=== PATIENT | male | born 1950 | race Asian ===

== ENCOUNTER → 2021-06-13 08:10 | Outpatient (REF) | payer OTHER, SELFPAY ==
--- NOTE | ~2021-06-13 | XR_ITS ---
EXAMINATION: XR CHEST CLINICAL INFORMATION: Smoking history COMPARISON: None TECHNIQUE: 2 views of the chest were obtained. FINDINGS: The cardiac and mediastinal contours are normal. The lungs are well inflated. The lungs are clear. There is no pleural effusion or pneumothorax. Bony structures are unremarkable. XR/XR chest 2V IMPRESSION: Hyperinflation. No evidence for acute disease in the chest.
--- NOTE | 2021-06-13 08:20 | CA_ITS ---
Transthoracic Echocardiogram Patient (Last, First, Middle): Jeronimo Jaquez S Gender: Male Date of : 1950 Age: 71 Procedure Date: 06/13/2021 Procedure Type: Transthoracic Echocardiogram Location: OP Height: 182.88 cm Weight: 74.84 kg BSA: 1.96 m2 Heart Rate: bpm BP: 108 / 72 mmHg Appeals Reviewer Veteran: DSG Referring MD: Raúl Gilliam MD Symptoms: R94.31 - Abnormal electrocardiogram [ECG] [EKG] Study Quality: Fair ECG Rhythm: Sinus Conclusions: - The left ventricular systolic function is normal. The calculated ejection fraction is 63% by biplane method. - Mildly increased right ventricular cavity size. - No obvious valvular pathology seen on this study. - There is mild dilatation of the ascending aorta measuring 4.00 cm. Findings Left Ventricle Normal left ventricular cavity size. There is normal left ventricular wall thickness. The left ventricular systolic function is normal. The calculated ejection fraction is 63% by biplane method. There is no evidence of regional wall motion abnormalities. Diastolic function is normal for age. LV peak global longitudinal strain -15.7% (mildly reduced). Right Ventricle Mildly increased right ventricular cavity size. There is normal right ventricular systolic function. Atria Both atria are normal in size. Aortic Valve There is a normal trileaflet aortic valve. There is mild calcification of the aortic valve. There is no aortic valve stenosis. There is no aortic valve regurgitation. Mitral Valve The mitral valve appears normal. There is no mitral valve regurgitation. There is no mitral valve stenosis. Pulmonic Valve The pulmonic valve is likely normal. Tricuspid Valve Normal tricuspid valve structure. There is trace tricuspid valve regurgitation. The pulmonary artery systolic pressure is normal. Great Vessels There is mild dilatation of the ascending aorta measuring 4.00 cm. Venous The inferior vena cava is normal in size and collapses greater than 50% with inspiration. Pericardium/Pleural There is no evidence of pericardial effusion. Prior Study Comparison No prior study available for comparison. Recommendations, Care & Conclusions No obvious valvular pathology seen on this study. Measurements 2D Linear Measurements IVSd: 0.90 0.6-0.9/0.6-1.0 cm LVIDd: 4.60 3.9-5.3/4.2-5.9 cm LVIDd Index: 2.35 2.4-3.2/2.2-3.1 cm/m2 LVIDs: 3.29 2.0-3.6 cm LVPWd: 1.04 0.7-1.1 cm LA Diam: 2.50 2.7-3.8/3.0-4.0 cm LAIDs Index: 1.28 1.5-2.3 cm/m2 LV Mass: 190.22 67-162/88-224 g LV Mass Index: 97.05 43-95/49-115 g/m2 LVOT Diam: 2.60 3.0+(-)1.3 cm 2D Systolic Function EF 4C: 63.30 >55% EF 2C: 61.10 >55% EF BiP: 62.60 >55% Mitral Valve MV Pk E: 0.58 MV PK A: 0.55 MV Decel Time: 161.00 E/A: 1.10 E'Lateral: 9.46 E'Medial: 7.62 E/E' Med: 7.70 E/E' Lat: 6.20 PHT: 47.00 MVA PHT: 4.68 Decel [place]: 3.62 Aortic Valve AoV Pk Tobi: 1.32 AoV Pk Grad: 7.00 LVOT LVOT Pk Tobi: 0.98 LVOT Mn Tobi: 0.63 LVOT VTI: 0.23 LVOT Pk Grad: 4.00 LVOT Mn Grad: 2.00 LVOT Diam: 2.60 LVOT Area: 5.31 Diastolic Function MV Pk E: 0.58 MV Pk A: 0.55 E/A: 1.10 E'Medial: 7.62 E/E' Med: 7.70 E' Laterial: 9.46 E/E' Lat: 6.20 Tricuspid Valve TR Pk Tobi: 2.54 TR Pk Grad: 26.00 RA Press: 3.00 RVSP: 29.00 Great Vessels Aorta Sinus of Valsalva: 4.00 2.0-3.5 cm Ao Asc: 4.00 2.1-3.4 cm Updated in Other Vendor System with Status of Final Nato Sharp MD electronically signed on 06/15/2021 12:57:37 PM with status of Final
== END ==
LOC: HO.CARD 08:10
PROVIDERS: PCP Family Medicine; Visit Provider Family Medicine
DX: R94.31 Abnormal electrocardiogram [ECG] [EKG] (principal); F17.200 Nicotine dependence, unspecified, uncomplicated
CPT/HCPCS: 71046; 93306; 93356

== ENCOUNTER 2022-10-17 08:47 | Outpatient (AMB) | payer OTHER, SELFPAY ==
[2022-10-17 08:49] VITALS: BP 110/70; PULSE 73; O2SAT 98; BMI 21.2
--- NOTE | 2022-10-17 08:49 | A.OFFPC_ITS ---
Vital Signs 10/17/22 08:49 Height 6 ft Weight 156 lb BMI 21.2 BP 110/70 Blood Pressure Location Rt brachial Position Sitting Pulse 73 Pulse Source Pulse Oximeter Pulse Oximetry (%) 98 Intake Visit Reasons: med review Intake Note: pt is here for med review, also concerns with wound/wound care Production Tester Required: No Accompanied by: Self / Same As Patient Allergies No Known Allergies Allergy (Verified 10/17/22 08:54) Medication List - Last Reconciled 10/17/22 by Raúl Gilliam MD albuterol sulfate 90 mcg/actuation (Ventolin HFA) 2 puffs inhalation Q4-6H PRN Flovent HFA 110 mcg/actuation (fluticasone propionate) 2 puffs inhalation BID 30 days NS Tobacco use date assessed: 10/17/22 Fall risk assessment: No Falls in past year Last assessed Fall Risk: 10/17/22 Dental Screening Dental Screen Date: 10/17/22 Did you have a dental visit in the last 12 months?: Yes Did you have a dental problem in the last 6 months where you did not have access to dental care?: No Was dental information given to patient?: Patient has dentist HPI med review HPI Details 72 y/o male presents to f/u med review. Pt reports ongoing concerns with his buttock wound. Pt has had this concern for several months and has not healed yet. He denies any pain today but notes that it does drain. He reports drainage is mostly clear with sometimes pus. Pt reports his breathing is okay but does feel worse than usual. He now smokes 1/2 ppd. He has trialed the nicotine gum which he notes has helped. He continues to take his Flovent and his Ventolin. Pt reports weight loss, unintentional. BMI today 21.2 HPI Comments History of Present Illness Details Documentation assistance for Raúl Gilliam MD, was provided by Leander Gilbert, Insurance Territory Manager on 10/17/2022 9:18 AM EST. Hernandez, Dr. Gilliam, have read, observed, and verified documentation. [facility] Surgical History History of inguinal hernia repair Social History Housing: House Patient Tobacco Use Status: Current everyday Tobacco user Tobacco use type: Cigarette Cigarettes Per Day: 10 e-Cigarette/Vaping Use: Never Used Second Hand Smoke Exposure: No Current occupational status: retired Current occupational exposures/hazards: No Cognitive needs: No Hearing needs: No Vision needs: No Questionnaire Thrive Questionnaire Date Thrive assessed: 02/26/21 MARIO-7 AMB Questionnaire MARIO-7 Date MARIO - 7 assessed: 02/26/21 Source: Developed by Drs. Andrew Lu, Livier Sifuentes, Kamaljit Pulido and colleagues, with an educational yanelis from [employer]. Review of Systems Const Denies chills, Denies fatigue, Denies fever(s), Denies headache(s) and Denies weakness ENT Denies dizziness and Denies headache(s) Card Denies chest pain, Denies lightheadedness, Denies dyspnea and Denies other (Palpitations) Resp Denies cough, Denies dyspnea, Denies wheezing and Denies other ( shortness of breath) Musc Denies numbness and Denies tingling Neuro Denies dizziness, Denies headache(s), Denies numbness, Denies tingling, Denies paresthesias and Denies weakness Psych Denies anxiety and Denies depression Endo Denies fatigue Aller/Immun Denies wheezing Physical exam (Primary Care) Vital Signs: Last Vital Signs Pulse 73 10/17/22 08:49 BP 110/70 10/17/22 08:49 Pulse Ox 98 10/17/22 08:49 BMI result Body Mass Index 21.2 Tobacco/Smoking Status: Tobacco use Status Tobacco use date assessed 10/17/22 10/17/22 08:56 Patient Tobacco Use Status Current everyday Tobacco 10/17/22 08:56 Tobacco use type Cigarette 10/17/22 08:56 e-Cigarette/Vaping Use Never Used 10/17/22 08:56 Thrive Assessment: Date of Thrive Assessment Date Thrive assessed 02/26/21 10/17/22 08:56 Const General: no acute distress and well developed Nutritional Appearance: well nourished Orientation/consciousness: patient oriented x3 HENMT Head: Yes normocephalic and Yes atraumatic Eyes General: appearance normal, both eyes and all related structures Pupils: Equal, round and reactive pupils present EOM: EOMs intact bilaterally Resp Other: Clear but distant breath sounds Effort & Inspection: normal respiratory effort Auscultation: clear to auscultation bilaterally Cardio Rate: regular rate Rhythm: regular rhythm Heart sounds: S1 normal heart sound present, S2 normal heart sound present, no gallops, no murmurs and no rubs Neuro General: patient oriented x3 and gait normal Cranial nerves: Yes Equal, round and reactive pupils present Psych Affect: normal affect Assessment and Plan Assessment & Plan (1) COPD (chronic obstructive pulmonary disease): Code(s): J44.9 - Chronic obstructive pulmonary disease, unspecified Plan: Currently stable. Lungs sound clear though distant. Continue inhaled medications Advised weaning and smoking cessation (2) Smoker: Code(s): F17.200 - Nicotine dependence, unspecified, uncomplicated Plan: As above, advised weaning and smoking cessation He uses gum to help wean down though he has not been using this lately. Has this available. Briefly discussed Chantix (3) Abscess of skin: Code(s): L02.91 - Cutaneous abscess, unspecified Plan: Ongoing chronic wound/ulcer at buttocks Referred to wound care (4) Diarrhea: Code(s): R19.7 - Diarrhea, unspecified Plan: Dental abscess and he was given penicillin a month ago. Since then has had intermittent watery diarrhea Likely antibiotic associated diarrhea but there is some possibility of C diff so checking labs (5) Dental abscess: Code(s): K04.7 - Periapical abscess without sinus Plan: Recently prescribed penicillin and advised he see his dentist Has seen dentist and has follow-up appointments for definitive care. (6) Weight loss: Code(s): R63.4 - Abnormal weight loss Plan: Mild unintentional weight loss. Patient's BMI is still within normal limits. Common and patients with COPD. Will continue to monitor Given he is a smoker, if he continues to have weight loss, will check chest x-ray and workup further Plan Due for CPE Orders: Orders Comprehensive [place]. Panel Fast Today Z00.00 - Encounter for general adult medical examination without abnormal findings Lipid Panel Today Z00.00 - Encounter for general adult medical examination without abnormal findings Prostate Specific Antigen Scr Today Z12.5 - Encounter for screening for malignant neoplasm of prostate TSH reflex Free T4 Today Z00.00 - Encounter for general adult medical examination without abnormal findings Microalbumin, Random (w Creat) Today I10 - Essential (primary) hypertension Complete Blood Count Auto Diff Today Z00.00 - Encounter for general adult medical examination without abnormal findings UA and rflx microscopic Today Z00.00 - Encounter for general adult medical examination without abnormal findings CDiff Gene PCR Today R19.7 - Diarrhea, unspecified GI Panel Today R19.7 - Diarrhea, unspecified Medications: Changed From albuterol sulfate 90 mcg/actuation (Ventolin HFA) 2 puffs inhalation Q4-6H PRN 8.5 grams 0RF shortness of breath or wheezing To albuterol sulfate 90 mcg/actuation (Ventolin HFA) 2 puffs inhalation Q4-6H 30 days PRN 8.5 grams 6RF shortness of breath or wheezing Coding Level of Care Code Est Pt Level 4 (93648) Diagnoses COPD (chronic obstructive pulmonary disease) J44.9 Smoker F17.200 Abscess of skin L02.91 Diarrhea R19.7 Dental abscess K04.7 Weight loss R63.4
== END 2022-10-17 09:28 | disposition home or self-care (01) ==
PROVIDERS: PCP Family Medicine; Visit Provider Family Medicine
DX: J44.9 Chronic obstructive pulmonary disease, unspecified (principal); F17.200 Nicotine dependence, unspecified, uncomplicated; L02.91 Cutaneous abscess, unspecified; R19.7 Diarrhea, unspecified; K04.7 Periapical abscess without sinus; R63.4 Abnormal weight loss
CPT/HCPCS: 99214

== ENCOUNTER 2022-11-28 12:42 | Outpatient (RCR) | payer OTHER, SELFPAY | END 2022-12-15 17:00 | disposition home or self-care (01) | LOC: HO.WCC 12:42 | PROVIDERS: PCP Family Medicine; Visit Provider Physician Assistant | DX: L02.31 Cutaneous abscess of buttock (principal); F17.210 Nicotine dependence, cigarettes, uncomplicated | CPT/HCPCS: 99213 ==

== ENCOUNTER 2022-12-15 13:18 | Outpatient (AMB) | payer OTHER, SELFPAY ==
[2022-12-15 13:43] VITALS: BP 137/71; PULSE 84; BMI 20.6
--- NOTE | 2022-12-15 13:43 | MHC.OFFVIS ---
Intake Vital Signs 12/15/22 13:43 Height 6 ft Weight 152 lb BMI 20.6 BP 137/71 Blood Pressure Location Rt brachial Position Sitting Pulse 84 Intake Visit Reasons: ? Abscess of left buttock Intake Note: Patient referred for abscess on lt buttock. Present since August 1999. Not healing completely. C/o oozing yellowish pus. Business Intelligence Director Required: No Accompanied by: Self / Same As Patient Allergies No Known Allergies Allergy (Verified 12/15/22 13:45) HPI HPI Comments History of Present Illness Details Patient presents for evaluation left buttock. He has had a several year history of chronic infections and inflammation of this area. He was seen [facility] referred him here. Chart was reviewed patient [facility] Surgical History History of inguinal hernia repair Social History (Updated 12/15/22 @ 13:47 by GABRIELE Cox) Housing: House Alcohol intake: never Patient Tobacco Use Status: Current everyday Tobacco user Tobacco use type: Cigarette Cigarettes Per Day: 10 e-Cigarette/Vaping Use: Never Used Second Hand Smoke Exposure: No Current occupational status: retired Current occupational exposures/hazards: No Cognitive needs: No Hearing needs: No Vision needs: No Physical Exam Vital Signs: Last Vital Signs Pulse 84 12/15/22 13:43 BP 137/71 12/15/22 13:43 BMI result Body Mass Index 20.6 Skin Other: Patient has profound and extensive chronic hidradenitis suppurativa changes involving nearly his entire left buttock. No obvious evidence of fluctuance or abscess but marked induration and thickening of the centrally and tired area involved. Assessment & Plan Assessment & Plan (1) Hidradenitis suppurativa: Code(s): L73.2 - Hidradenitis suppurativa Plan This was reviewed and also evaluated/examined by Dr. Christianson who agrees that thishidradinitis suppurative would best be served by attempted treatment by dermatology with biologics. Dr. Orozco has handled these cases before and a referral will be made for this appointment. Patient otherwise follow-up p.r.n. or with [facility]ound [facility] whom he had visited last week. Coding Level of Care Code New Pt Level 4 (28906) Diagnoses Hidradenitis suppurativa L73.2
== END 2022-12-15 13:57 | disposition home or self-care (01) ==
PROVIDERS: PCP Family Medicine; Referring Provider Physician Assistant; Visit Provider Surgery
DX: L73.2 Hidradenitis suppurativa (principal)
CPT/HCPCS: 99204

== ENCOUNTER → 2022-12-15 13:18 | Outpatient (BNVA) | payer OTHER, SELFPAY | PROVIDERS: PCP Family Medicine; Referring Provider Physician Assistant; Visit Provider Surgery ==

== ENCOUNTER 2022-12-22 10:51 | Outpatient (AMB) | payer OTHER, SELFPAY ==
--- NOTE | 2022-12-22 11:03 | MHC.PC.OV ---
Vital Signs 12/22/22 11:04 Height 6 ft Weight 153 lb 6 oz BMI 20.8 BP 124/72 Blood Pressure Location Rt brachial Position Sitting Pulse 77 Pulse Source Pulse Oximeter Pulse Oximetry (%) 95 Intake Visit Reasons: CPE with f/u labs and health maint Intake Note: Patient is here for his physical today. Allergies No Known Allergies Allergy (Verified 12/22/22 11:07) Tobacco use date assessed: 12/22/22 Fall risk assessment: No Falls in past year Last assessed Fall Risk: 12/22/22 HPI CPE with f/u labs and health maint HPI Details Patient?presents?for?complete?physical?exam. No?recent?labs?to?review. He?notes?that?he?has?been?using?his?albuterol?inhaler?more. Breathing?fairly?easily?today?but?says?that?he?was?coughing?up?mucus?this?morning?which?he?does?every?morning?and?he?is?still?smoking?about?10?cigarettes?per?day. Had?tried?an?Advair?inhaler?in?the?past?which?helped?control?his?symptoms. Seen?by?surgery?and?they?referred?him?to?dermatology?for?hidradenitis?suppurativa Feels?fairly?well?today.??No?other?complaints. [facility] Surgical History History of inguinal hernia repair Social History (Updated 12/15/22 @ 13:47 by GABRIELE Cox) Housing: House Alcohol intake: never Patient Tobacco Use Status: Current everyday Tobacco user Tobacco use type: Cigarette Cigarettes Per Day: 10 e-Cigarette/Vaping Use: Never Used Second Hand Smoke Exposure: No Current occupational status: retired Current occupational exposures/hazards: No Cognitive needs: No Hearing needs: No Vision needs: No Questionnaire Thrive Questionnaire Date Thrive assessed: 02/26/21 MARIO-7 AMB Questionnaire MARIO-7 Date MARIO - 7 assessed: 02/26/21 Source: Developed by Drs. Andrew Lu, Liiver Sifuentes, Kamaljit Pulido and colleagues, with an educational yanelis from [employer]. Review of Systems Const Denies chills, Denies fatigue, Denies fever(s), Denies headache(s) and Denies weakness Eyes Denies change in vision ENT Denies dizziness, Denies headache(s), Denies hearing loss, Denies nasal congestion, Denies sinus pain, Denies sinus pressure and Denies sore throat Card Denies chest pain, Denies lightheadedness, Denies dyspnea and Denies other (palpitations) Resp Details: Some?coughing?and?mucus?in?the?mornings. Reports cough, Denies dyspnea and Denies wheezing GI Denies abdominal pain, Denies melena, Denies hematochezia, Denies change in bowel habits, Denies dyspepsia and Denies nausea Denies hematuria and Denies dysuria Musc Denies abnormal gait, Denies myalgias, Denies arthralgias, Denies numbness and Denies tingling Skin/Breast Details: See?HPI Denies rash, Denies unusual bruising and Denies wounds Neuro Denies abnormal gait, Denies dizziness, Denies headache(s), Denies memory loss, Denies numbness, Denies Sensory deficit (Neuro), Denies tingling and Denies weakness Psych Denies anxiety, Denies depression and Denies memory loss Endo Denies cold intolerance, Denies fatigue, Denies heat intolerance, Denies polydipsia and Denies polyuria Rodney/Lymph Denies easy bleeding and Denies easy bruising Aller/Immun Denies wheezing Physical exam (Primary Care) Vital Signs: Last Vital Signs Pulse 77 12/22/22 11:04 BP 124/72 12/22/22 11:04 Pulse Ox 95 12/22/22 11:04 BMI result Body Mass Index 20.8 Tobacco/Smoking Status: Tobacco use Status Tobacco use date assessed 12/22/22 12/22/22 11:07 Patient Tobacco Use Status Current everyday Tobacco 12/22/22 11:06 Tobacco use type Cigarette 12/22/22 11:06 e-Cigarette/Vaping Use Never Used 12/22/22 11:06 Thrive Assessment: Date of Thrive Assessment Date Thrive assessed 02/26/21 12/22/22 11:06 Const General: no acute distress, well developed, alert and awake Nutritional Appearance: well nourished Orientation/consciousness: patient oriented x3 HENMT Head: Yes normocephalic and Yes atraumatic Ears: hearing grossly normal bilaterally and TM's normal bilaterally General nose exam: Normal external nose present and Normal nares present Mouth: Normal oral and palatal mucosa present and moist mucous membranes Teeth and gingiva: dentition normal Throat: Yes posterior oropharynx normal Eyes Pupils: Equal, round and reactive pupils present and Pupil accommodation reflex normal EOM: EOMs intact bilaterally Neck Neck: Yes normal visual inspection, Yes no lymphadenopathy and Yes trachea midline Thyroid: Thyroid normal Carotids: no bruits Lymphatic: no lymphadenopathy noted Chest Chest palpation & inspection: normal inspection of the chest Resp Other: Distant?breath?sounds?but?otherwise?clear?to?auscultation?today. Effort & Inspection: normal respiratory effort Auscultation: clear to auscultation bilaterally Cardio Rate: regular rate Rhythm: regular rhythm Heart sounds: S1 normal heart sound present, S2 normal heart sound present, no gallops, no murmurs and no rubs Bruits: no abdominal aortic bruits and no carotid bruits GI Palpation (GI): No Abdominal aortic bruit present, Soft to palpation, nontender, No hepatosplenomegaly present and No Rebound tenderness present Auscultation: normal bowel sounds General: Yes no CVA tenderness Back/Spine/Pelvis Back: no CVA tenderness Cervical Spine: cervical ROM normal and No Cervical spine tenderness Thoracic/Lumbar Spine: thoraco-lumbar ROM normal, No pain with thoraco-lumbar ROM, No thoracic spinal tenderness and No lumbar spinal tenderness Skin Other: Hidradenitis?suppurativa?wound?had?buttock/sacral Lesions: no lesions Rashes: no rashes Trauma: no lacerations or abrasions Wounds: no wounds Nails: normal Neuro General: patient oriented x3, gait normal and CN's II-XI intact bilaterally Cranial nerves: Yes Equal, round and reactive pupils present Cognition (Neuro): normal cognition Gait exam (Neuro): Normal gait present Motor exam (neuro): 5/5 motor strength present throughout Sensory Exam: No Sensory deficit (Neuro) Deep tendon reflexes (DTR's): Right patellar reflex intensity grade: 2+ and Left patellar reflex intensity grade: 2+ Extrem General: Yes normal to inspection and No edema Psych Appearance: grossly normal Affect: normal affect Attitude: cooperative Thought process: Normal thought process present Assessment and Plan Assessment & Plan (1) Adult general medical exam: Code(s): Z00.00 - Encounter for general adult medical examination without abnormal findings Plan: 72-year-old?male?presents?for?complete?physical?exam Stable (2) COPD (chronic obstructive pulmonary disease): Code(s): J44.9 - Chronic obstructive pulmonary disease, unspecified Plan: Fairly?stable. Still?smoking?and?I?recommended?cessation. However,?he?has?noted?he?uses?his?albuterol?inhaler?more?often. Will?trial?Advair?and?he?will?stop?using?Flovent Continue?albuterol?as?a?rescue?inhaler?when?needed. (3) Smoker: Code(s): F17.200 - Nicotine dependence, unspecified, uncomplicated Plan: As?above?recommended?cessation Use?nicotine?gum?when?needed?for?cravings. (4) Dental abscess: Code(s): K04.7 - Periapical abscess without sinus Plan: Follow-up?with?dentist (5) Hidradenitis suppurativa: Code(s): L73.2 - Hidradenitis suppurativa Plan: Was?referred?by?surgery?to?Dermatology Follow-up?with?dermatology?as?recommend (6) Screening for colon cancer: Code(s): Z12.11 - Encounter for screening for malignant neoplasm of colon Plan: Has?not?gotten?Cologuard?done?yet. Agrees?to?try?again?and?I?sent?new?order?for?Cologuard (7) Screening for prostate cancer: Code(s): Z12.5 - Encounter for screening for malignant neoplasm of prostate Plan: Check?PSA?with?lab (8) Screening for lung cancer: Code(s): Z12.2 - Encounter for screening for malignant neoplasm of respiratory organs Plan: Meets?criteria?for?low-dose?CT?scan-will?get?paperwork?to?refer?him?for?low-dose?CT?scan. Orders: Orders Complete Blood Count Auto Diff Today Z00.00 - Encounter for general adult medical examination without abnormal findings, Z12.11 - Encounter for screening for malignant neoplasm of colon Lipid Panel Today Z00.00 - Encounter for general adult medical examination without abnormal findings, Z12.11 - Encounter for screening for malignant neoplasm of colon Prostate Specific Antigen Scr Today Z12.11 - Encounter for screening for malignant neoplasm of colon, Z12.5 - Encounter for screening for malignant neoplasm of prostate Comprehensive [place]. Panel Fast Today Z00.00 - Encounter for general adult medical examination without abnormal findings, Z12.11 - Encounter for screening for malignant neoplasm of colon Microalbumin, Random (w Creat) Today I10 - Essential (primary) hypertension, Z12.11 - Encounter for screening for malignant neoplasm of colon TSH reflex Free T4 Today Z00.00 - Encounter for general adult medical examination without abnormal findings, Z12.11 - Encounter for screening for malignant neoplasm of colon UA and rflx microscopic Today Z00.00 - Encounter for general adult medical examination without abnormal findings, Z12.11 - Encounter for screening for malignant neoplasm of colon Referrals Cologuard Test Z12.11 - Encounter for screening for malignant neoplasm of colon, Z12.12 - Encounter for screening for malignant neoplasm of rectum Medications: New fluticasone propion-salmeterol 500-50 mcg/dose (Advair Diskus) 1 inh inhalation Q12H 30 days 60 ea 4RF Discontinued Flovent HFA 110 mcg/actuation (fluticasone propionate) Discontinued Reason: Doctor's Order 2 puffs inhalation BID 30 days 12 grams 4RF NS Coding Level of Care Code Est Pt Level 3 (97345) Est Pt Prev Care >65y(62438) Diagnoses Adult general medical exam Z00.00 COPD (chronic obstructive pulmonary disease) J44.9 Smoker F17.200 Dental abscess K04.7 Hidradenitis suppurativa L73.2 Screening for colon cancer Z12.11 Screening for prostate cancer Z12.5 Screening for lung cancer Z12.2
[2022-12-22 11:04] VITALS: BP 124/72; PULSE 77; O2SAT 95; BMI 20.8
== END 2022-12-22 12:07 | disposition home or self-care (01) ==
PROVIDERS: PCP Family Medicine; Visit Provider Family Medicine
DX: Z00.00 Encounter for general adult medical examination without abnormal findings (principal); J44.9 Chronic obstructive pulmonary disease, unspecified; F17.210 Nicotine dependence, cigarettes, uncomplicated; K04.7 Periapical abscess without sinus; L73.2 Hidradenitis suppurativa; Z12.11 Encounter for screening for malignant neoplasm of colon; Z12.5 Encounter for screening for malignant neoplasm of prostate; Z12.2 Encounter for screening for malignant neoplasm of respiratory organs
CPT/HCPCS: 99397

== ENCOUNTER 2023-01-19 10:10 | Outpatient (REF) | payer OTHER, SELFPAY ==
[2023-01-19 12:18] LABS: Alanine Aminotransferase 13 U/L (0-40); Albumin Level 3.9 g/dL (3.5-5.0); Alkaline Phosphatase 101 U/L (39-117); Anion Gap 11 (12-20); Aspartate Amino Transferase 18 U/L (5-37); Bilirubin Total 0.4 mg/dL (0.0-1.0); Blood Urea Nitrogen 17 mg/dL (9-16); Calcium 9.5 mg/dL (8.4-10.2); Carbon Dioxide 26 mmol/L (22-29); Chloride 107 mmol/L (96-108); Cholesterol 156 mg/dL (<200); Estimated Glomerular Filt Rate > 60; Glucose Fasting 92 mg/dL (60-99); HDL Cholesterol 48 mg/dL (>40); LDL Cholesterol Calculated 96 mg/dL (<100); Potassium 4.3 mmol/L (3.3-5.1); Prostate Specific Antigen Scr 1.45 ng/mL (<0.05-4.0); Sodium 140 mmol/L (135-145); TSH reflex Free T4 1.31 uIU/mL (0.32-4.0); Total Protein 7.9 g/dL (6.5-8.0); Triglycerides 63 mg/dL (<150)
== END 2023-01-19 10:11 | disposition home or self-care (01) ==
LOC: HO.WFDLDS 10:10
PROVIDERS: Visit Provider Family Medicine
DX: Z00.00 Encounter for general adult medical examination without abnormal findings (principal); Z12.5 Encounter for screening for malignant neoplasm of prostate
CPT/HCPCS: 36415; 80053; 80061; 84153; 84443

== ENCOUNTER 2023-01-23 16:31 | Outpatient (AMB) | payer OTHER, SELFPAY ==
--- NOTE | 2023-01-23 16:44 | A.OFFPC_ITS ---
Intake Visit Reasons: f/u CPE-labs Intake Note: Patient is calling to follow up on labs. Patient states he went to the wound center, and was sent to s surgeon, then sent to [facility]. Allergies No Known Allergies Allergy (Verified 01/23/23 16:45) Tobacco use date assessed: 01/23/23 Fall risk assessment: No Falls in past year Last assessed Fall Risk: 01/23/23 HPI f/u CPE-labs HPI Details 72 y/o male presents to f/u CPE-labs via telemedicine. Labs were drawn 01/19/23. Reviewed labs with pt. Triglycerides 63. TC 156. LDL 96. HDL 48. PFSH Surgical History History of inguinal hernia repair Social History Housing: House Alcohol intake: never Patient Tobacco Use Status: Current everyday Tobacco user Tobacco use type: Cigarette Cigarettes Per Day: 10 Smoked in Last 30 Days: Yes e-Cigarette/Vaping Use: Never Used Frequency of e-Cigarette/Vaping Use: 0 Date Education Initiated: 12/22/22 Second Hand Smoke Exposure: Yes Current occupational status: retired Current occupational exposures/hazards: No Cognitive needs: No Hearing needs: No Vision needs: No Questionnaire Thrive Questionnaire Date Thrive assessed: 02/26/21 MARIO-7 AMB Questionnaire MARIO-7 Date MARIO - 7 assessed: 02/26/21 Source: Developed by Drs. Andrew Lu, Livier Sifuentes, Kamaljit Pulido and colleagues, with an educational yanelis from [email or web address]. Review of Systems Const Denies chills, Denies fatigue, Denies fever(s), Denies headache(s) and Denies weakness ENT Denies dizziness and Denies headache(s) Card Denies dyspnea Resp Denies cough, Denies dyspnea, Denies wheezing and Denies other (shortness of breath) Musc Denies numbness and Denies tingling Neuro Denies dizziness, Denies headache(s), Denies numbness, Denies tingling and Denies weakness Psych Denies anxiety and Denies depression Endo Denies fatigue Aller/Immun Denies wheezing Physical exam (Primary Care) Tobacco/Smoking Status: Tobacco use Status Tobacco use date assessed 01/23/23 01/23/23 16:48 Patient Tobacco Use Status Current everyday Tobacco 01/23/23 16:48 Tobacco use type Cigarette 01/23/23 16:48 e-Cigarette/Vaping Use Never Used 01/23/23 16:48 Thrive Assessment: Date of Thrive Assessment Date Thrive assessed 02/26/21 01/23/23 16:48 Telehealth Telehealth Minutes spent on Phone/Video with Pt.: 9 Assessment and Plan Assessment & Plan (1) COPD (chronic obstructive pulmonary disease): Code(s): J44.9 - Chronic obstructive pulmonary disease, unspecified Plan: Patient?has?albuterol?and?is?using?frequently. Had?sent?a?script?for?Advair?but?he?has?not?received?these?yet. Office?says?says?that?this?has?been?sent?so?he?will?check?with?his?pharmacy. He?will?let?me?know?if?he?does?not?receive?it;?would?try?[facility]. (2) Hidradenitis suppurativa: Code(s): L73.2 - Hidradenitis suppurativa Plan: Was?seen?by?surgeon?who?started?him?on?cephalexin?which?is?improving?healing He?has?an?appointment?with?[facility] He?will?let?me?know?if?healing?[place]. (3) Smoker: Code(s): F17.200 - Nicotine dependence, unspecified, uncomplicated Plan: Continue?smoking?but?is?working?on?weaning?down. Have?ordered?low- dose?CT?scan?but?patient?has?not?been?contacted?yet.??Will?ask?the?office?to?hel p?facilitate?appointment Coding Level of Care Code Tele Est Pt Level 2 (34678) Diagnoses COPD (chronic obstructive pulmonary disease) J44.9 Hidradenitis suppurativa L73.2 Smoker F17.200
== END 2023-01-23 16:45 ==
PROVIDERS: PCP Family Medicine; Visit Provider Family Medicine
DX: J44.9 Chronic obstructive pulmonary disease, unspecified (principal); L73.2 Hidradenitis suppurativa; F17.200 Nicotine dependence, unspecified, uncomplicated
CPT/HCPCS: 99441